=== PATIENT | male | born 1965 | race Caucasian/White ===

== ENCOUNTER 2017-01-07 04:12 | Emergency (ER) | payer OTHER ==
[~2017-01-07] VITALS: Ht 170.2 cm; Wt 72.6 kg
[2017-01-07 04:41] VITALS: BP 138/81
--- NOTE | 2017-01-07 04:41 | NUR ---
Patient ambulated to bed 04.
--- NOTE | 2017-01-07 04:47 | NUR ---
Dr. Ambrose evaluating patient at bedside.
[2017-01-07] MEDS ORDERED: IBUPROFEN 800 MG TAB PO ONE (04:50)
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
--- NOTE | 2017-01-07 05:59 | NUR ---
Patient back from XRAY via wheelchair per tech.
[2017-01-07 06:14] VITALS: BP 130/80
--- NOTE | 2017-01-07 06:14 | NUR ---
Patient discharged with v/s stable. Written and verbal after care instructions given and explained. Patient alert, oriented and verbalized understanding of instructions. Ambulatory with steady gait. All questions addressed prior to discharge. ID band removed. Patient advised to follow up with PMD. Rx of MOTRIN 800 MG, TYLENOL 500 MG given. Patient educated on indication of medication including possible reaction and side effects. Opportunity to ask questions provided and answered.
== END 2017-01-07 06:14 | disposition home or self-care (01) ==
LOC: MED 04:12
DX: S20.211A Contusion of right front wall of thorax, initial encounter (principal); E11.9 Type 2 diabetes mellitus without complications; I10 Essential (primary) hypertension; W17.89XA Other fall from one level to another, initial encounter; Y93.89 Activity, other specified; Y92.89 Other specified places as the place of occurrence of the external cause; Y99.8 Other external cause status
CPT/HCPCS: 71101; 99284

== ENCOUNTER 2019-07-17 22:25 | Emergency (ER) | payer SELFPAY ==
[~2019-07-17] VITALS: Ht 170.2 cm; Wt 74.8 kg
[2019-07-17 22:42] VITALS: BP 125/87
--- NOTE | 2019-07-17 23:28 | NUR ---
C/O RT LEG PAIN X 1 WEEK. RATES PAIN 8/10 AND DESCRIBES IT PRESSURE. RT LEG SHOWS SWELLING, REDNESS, TENDNERNESS TO TOUCH, NO DRIANAGE NOTED, SKIN WARM TO TOUCH. A & O X4. NKA. PMH: HTN, DM.
--- NOTE | 2019-07-17 23:36 | NUR ---
Dr. Patrick at bedside.
[2019-07-18] MEDS ORDERED: LIDOCAINE/EPI 1% 1:100000 20 ML VIAL INJ ONE (00:15)
[2019-07-18 01:05] VITALS: BP 136/79
--- NOTE | 2019-07-18 01:05 | NUR ---
Patient discharged with v/s stable. Instructed to return in 2 days for f/u wound treatment. States 0/10 pain at this time. Provided with additional guaze, tape, and medication discount card to fill rx Written and verbal after care instructions given and explained. Patient alert, oriented and verbalized understanding of instructions. Ambulatory with steady gait. All questions addressed prior to discharge. ID band removed. Patient advised to follow up with PMD and when to return to ER. Rx of Keflex, Naprosyn, and Bactrim given. Patient educated on indication of medication including possible reaction and side effects. Opportunity to ask questions provided and answered.
== END 2019-07-18 01:05 | disposition home or self-care (01) ==
LOC: MED 22:25
DX: L02.415 Cutaneous abscess of right lower limb (principal)
CPT/HCPCS: 10060; 90471; 90715; 99284; J2001; 10061

== ENCOUNTER 2019-07-19 22:48 | Emergency (ER) | payer SELFPAY ==
[~2019-07-19] VITALS: Ht 170.2 cm; Wt 74.8 kg
[2019-07-19 23:00] VITALS: BP 131/90
--- NOTE | 2019-07-19 23:00 | NUR ---
TO BED # 01 AMBULATORY
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
[2019-07-19 23:57] VITALS: BP 125/68
== END 2019-07-19 23:58 | disposition home or self-care (01) ==
LOC: MED 22:48
DX: L02.415 Cutaneous abscess of right lower limb (principal); E11.9 Type 2 diabetes mellitus without complications; I10 Essential (primary) hypertension
CPT/HCPCS: 99283

== ENCOUNTER 2020-06-06 23:00 | Inpatient (IN) | payer OTHER, SELFPAY ==
[~2020-06-06] VITALS: Ht 170.2 cm; Wt 78.5 kg
[~2020-06-06 23:00] MED LIST: APIX5TAB PO; BICT1TAB PO; CARV6.25 PO; CHOL100013 PO; EMPA10TA PO; FURO-570 PO; GLIP-176 PO; LISI10TA11 PO; ROSU5TAB PO
[2020-06-06 23:10] VITALS: BP 113/83
--- NOTE | 2020-06-06 23:10 | NUR ---
TO BED #11 VIA W/C
[2020-06-06] MEDS ORDERED: ONDANSETRON 4 MG/2 ML VIAL IVP ONE (23:20)
[2020-06-06] MEDS ORDERED: FUROSEMIDE 100 MG/10 ML VIAL IVP ONE (23:20)
[2020-06-06] MEDS ORDERED: MORPHINE SULFATE 2 MG/ML SYR IVP ONE (23:20)
--- NOTE | 2020-06-06 23:36 | NUR ---
LAB AT BEDSIDE.
--- NOTE | 2020-06-06 23:40 | NUR ---
54 Y/O MALE PRESENTED TO ED C/O BL LEG SWELLING , PT STATES IT HAS BEEN PROGRESSIVELY GETTING WORSE X 1 WEEK. PT DAUGHTER STATES HIS LEG HAS BEEN "LEAKING." PT WAS SEEN AT [facility] ER AND WAS D/C W/ WATER PILLS. THE WATER PILLS PROVIDED MINIMAL RELIEF. PT A/O X 4. RR EVEN AND UNLABORED. OBSERVED BL LOWER EXTREMITY SWELLING & REDNESS. + 4 BL PITTING EDEMA. + PEDAL PULSES. PT PLACED ON DESIGN ENGINEERING SPECIALIST, PULSE OX AND BP CUFF. VSS. NO ACUTE DISTRESS NOTED. PMH: CHF, DM, HTN, CVA X 2 YRS AGO BRENDA
[2020-06-06 23:47] LABS: EOSINOPHILS # (AUTO) 0.2 K/uL (0-0.4); EOSINOPHILS % (AUTO) 2.1 % (0.0-4.0); HEMOGLOBIN 12.9 g/dL (12.0-18.0); LYMPHOCYTES # (AUTO) 0.7 K/uL (2.0-11.5); MEAN CORPUSCULAR HEMOGLOBIN 26 pg (27-31); NEUTROPHILS # (AUTO) 6.3 K/uL (1.8-7.7); NEUTROPHILS % (AUTO) 82.8 % (42.2-75.2); WHITE BLOOD COUNT (AUTO) 7.6 K/uL (4.8-10.8)
[2020-06-06 23:51] LABS: BASOPHILS # (AUTO) 0.1 K/uL (0.00-0.22); BASOPHILS % (AUTO) 0.7 % (0.0-2.0); HEMATOCRIT 41.3 % (36-52); MEAN CORPUSCULAR HGB CONC 31 g/dL (33-37); MEAN CORPUSCULAR VOLUME 83.1 fL (80-94); MONOCYTES # (AUTO) 0.4 K/uL (0.8-1.0); MONOCYTES % (AUTO) 5.4 % (1.7-9.3); PLATELET COUNT (AUTO) 229 K/uL (140-450); RED BLOOD CELL COUNT(AUTO) 4.97 MIL/uL (4.20-6.10); RED CELL DISTRIBUTION WIDTH 22.1 % (11.6-13.7)
--- NOTE | 2020-06-07 00:04 | NUR ---
X-Ray at bedside.
[2020-06-07 00:14] LABS: ALBUMIN 2.3 g/dL (3.4-5.0); ANION GAP 12.2 (8-16); CARBON DIOXIDE 31.1 mmol/L (21-32); CREATININE 1.4 mg/dL (0.6-1.3); POTASSIUM 3.3 mmol/L (3.5-5.1); TOTAL BILIRUBIN 1.7 mg/dL (0.0-1.0)
--- NOTE | 2020-06-07 00:25 | NUR ---
PT PROVIDED URINAL.
--- NOTE | 2020-06-07 00:32 | NUR ---
US AT BEDSIDE.
--- NOTE | 2020-06-07 00:43 | NUR ---
BERONICA AUSTYN SWAB COLLECTED AND WALKED TO LAB.
[2020-06-07] MEDS ORDERED: METOCLOPRAMIDE 10 MG/2 ML INJ VIAL IVP PRN (00:50)
[2020-06-07] MEDS ORDERED: POTASSIUM CHLORIDE 10 MEQ TABER PO PRN (00:50)
[2020-06-07] MEDS ORDERED: MAGNESIUM OXIDE 400 MG TAB PO PRN (00:50)
[2020-06-07] MEDS ORDERED: ACETAMINOPHEN 325 MG TAB PO PRN (00:50)
[2020-06-07] MEDS ORDERED: DEXTROSE 50% 50 ML SYR IVP PRN (00:55)
[2020-06-07] MEDS ORDERED: ASPIRIN 325 MG TAB PO ONE (01:10)
[2020-06-07] MEDS ORDERED: AZITHROMYCIN 250 MG TAB PO ONE (01:20)
[2020-06-07] MEDS ORDERED: DEXAMETHASONE 4 MG/ML VIAL IVP ONE (01:20)
[2020-06-07] MEDS ORDERED: cefTRIAXone 1,000 MG VIAL ONE (01:54)
[2020-06-07 02:31] LABS: D-DIMER 3420 ng/ml (0-400)
[2020-06-07 02:36] LABS: FIBRINOGEN 294 mg/dL (200-400)
--- NOTE | 2020-06-07 02:40 | NUR ---
PT SLEEPING IN BED, LOCKED AND IN LOWEST POSITION ,HOB ELEVATED, SIDE RAIL X 2 FOR PT SAFETY. AROUSABLE TO VERBAL STIMULATION. VSS. NO ACUTE DISTRESS NOTED.
--- NOTE | 2020-06-07 04:51 | NUR ---
EMPTIED 800 CC YELLOW URINE FROM URINAL.
--- NOTE | 2020-06-07 04:53 | NUR ---
PT RESTING IN BED. NO ACUTE DISTRESS. VSS.
[2020-06-07] MEDS: BLOOD GLUCOSE MONITORING 1 DEV DEV FS SCH ×4 (07:09→21:17)
--- NOTE | 2020-06-07 07:25 | NUR ---
REPORT GIVEN TO KAYLEEN BOONE FOR TRANSFER OF CARE.
--- NOTE | 2020-06-07 07:26 | NUR ---
Report received from KAYLEEN Christina. Transfer of care at this time.
--- NOTE | 2020-06-07 07:47 | NUR ---
Pt sleeping, visible equal rise and fall of chest, VSS, will continue to monitor.
--- NOTE | 2020-06-07 08:15 | NUR ---
Pt provided with breakfast tray, HOB elevated.
[2020-06-07] MEDS ORDERED: FUROSEMIDE 40 MG/4 ML VIAL IVP SCH (09:00)
[2020-06-07] MEDS: APIXABAN 2.5 MG TAB PO SCH ×2 (09:01→21:19)
[2020-06-07] MEDS: lisinopriL 10 MG TAB PO SCH ×2 (09:01→21:20)
--- NOTE | 2020-06-07 09:04 | NUR ---
Gave report to KAYLEEN Collier for pending admission 108B.
--- NOTE | 2020-06-07 09:14 | NUR ---
PATIENT HAS BEEN SCREENED AND CATEGORIZED MODERATE NUTRITION RISK. PATIENT WILL BE SEEN WITHIN 3-5 DAYS OF ADMISSION. 06/09/20 06/11/[address]
--- NOTE | 2020-06-07 10:12 | NUR ---
Patient will be admitted to care of Jeane Keys. Admited to tele. Will go to room 108B. Belongings list completed. Report to KAYLEEN Collier.
--- NOTE | 2020-06-07 12:39 | NUR ---
SOCIAL WORK NOTE: Patient's Orientation Unable To Assess Information Provided By GILLIAN FORMAN - Comments SW WAS UNABLE TO MEET PATIENT AT BEDSIDE DUE TO MEDICAL CONDITION. SW COMPLETED ASSESSMENT WITH PATIENT'S SISTER. Career Manager, Realtionship and Phone Number GILLIAN HENAO [phone] [facility] Power of Philosophy Specialist No Does Patient Have a POLST No Identifying Problems No Social Work Triggers Is A Social Work Consult Needed No Mandate Report Filed No Explanation Of Identifying Problems PATIENT IS A 54-YEAR-OLD MALE ADMITTED FOR CHF. PATIENT HAS PMHX OF CHF AND DIABETES. SISTER REPORTED NO HISTORY OF SUBSTANCE ABUSE OR MENTAL HEALTH. Admitted From Home Pre-Admission Level Of Functioning Status Independent/Ambulatory Prior Resources/Services Used In Last 12 Months No Prior Resources Used Prior DME No Prior DME Used Living Situation Lives With Family House Patient Had Caregiver No Home Support No Caregiver Issues Financial Issues No Known Financial Issue Referral To The Financial Counselor Needed No Factors/Needs No D/C Needs Identified Pt/Rep Participated In Discharge Plan Yes Patient/Family Agress With Discharge Plan Yes Discharge Plan Comments TENTATIVE DISCHARGE PLAN IS FOR PATIENT TO RETURN HOME. DC Plan Status Initiated
[2020-06-07] MEDS: INSULIN LISPRO SLIDING SCALE 100 UNITS/ML VIAL SUBQ PRN ×2 (12:59→21:23)
[2020-06-07 20:00] VITALS: BP 112/59
--- NOTE | 2020-06-07 20:00 | NUR ---
RECEIVED PT IN STABLE CONDITION FROM AM NURSE. TELEMETRY PT. PT IS AWAKE , ALERT AND ORIENTED X4. AMBULATORY. ON TELE MONITOR. HL ON THE LT AC G#20. CLEAR AND PATENT. . BLE EDEMA 2 +. NO C/O ANY DISCOMFORT NOR PAIN NOTED. PLAN OF CARE DISCUSSED AND VERBALIZED UNDERSTANDING. FREQ ROUNDS NEEDED. BED ON LOW POSITION. SIDE RAILS UP X2. CALL LIGHT AND URINAL PLACED WITHIN REACH. WILL CONTINUE TO MONITOR.
[2020-06-07] MEDS ORDERED: ROSUVASTATIN CALCIUM 5 MG PO SCH (21:00)
[2020-06-07] MEDS ORDERED: SIMVASTATIN 20 MG TAB PO SCH (21:00)
[2020-06-07] MEDS: carvediloL 6.25 MG TAB PO SCH (21:20)
--- NOTE | 2020-06-07 21:23 | NUR ---
BLOOD SUGAR CHECKED RESULT 190. INSULIN COVERAGE GIVEN. HAD SOME CRACKERS NA MILK FOR SNACK.
[2020-06-08] VITALS: BP 128/74
--- NOTE | 2020-06-08 03:00 | NUR ---
MADE ROUNDS. PT IS ASLEEP. NO DISCOMFORT NOTED.
[2020-06-08 04:00] VITALS: BP 107/75
[2020-06-08] MEDS: BLOOD GLUCOSE MONITORING 1 DEV DEV FS SCH ×3 (06:01→18:15)
[2020-06-08] MEDS: INSULIN LISPRO SLIDING SCALE 100 UNITS/ML VIAL SUBQ PRN ×2 (06:02→12:44)
--- NOTE | 2020-06-08 06:02 | NUR ---
BLOOD SUGAR WAS CHECKED RESULT 185. INSULIN COVERAGE HUMALOG 2 UNITS GIVEN SUBQ.
[2020-06-08 06:56] LABS: ANION GAP 9.3 (8-16); CARBON DIOXIDE 33.8 mmol/L (21-32); CREATININE 1.3 mg/dL (0.6-1.3); POTASSIUM 4.1 mmol/L (3.5-5.1)
--- NOTE | 2020-06-08 07:30 | NUR ---
ENDORSED PT IN STABLE CONDITION TO AM NURSE.
--- NOTE | 2020-06-08 07:30 | NUR ---
RECEIVED PT A/O X3. DENIES PAIN. NO S/S OF NAUSEA OR VOMITING. NO SOB. PALPABLE PULSES TO DISTAL EXTREMITIES. NO CYANOSIS NOTED. DENIES CHEST PAIN. PLACED PT TO 2L O2 VIA N /C. PROVIDED REGULAR MASK FOR PREVENTION. NO ISOLATION. WILL CONTINUE TO MONITOR.
[2020-06-08] MEDS ORDERED: CHOLECALCIFEROL 1,000 IU TAB PO SCH (09:00)
[2020-06-08] MEDS ORDERED: NON-FORMULARY ITEM (Bictegrav/Emtricit/Tenofov Ala (Biktarvy 50-200-25 mg Tablet) 1 EACH) PO SCH (09:00)
[2020-06-08] MEDS ORDERED: SPIRONOLACTONE 25 MG TAB PO SCH (09:00)
[2020-06-08] MEDS ORDERED: CHOLECALCIFEROL 125 MCG PO SCH (09:00)
[2020-06-08] MEDS: lisinopriL 10 MG TAB PO SCH (09:04)
[2020-06-08] MEDS: carvediloL 6.25 MG TAB PO SCH (09:05)
[2020-06-08] MEDS: APIXABAN 2.5 MG TAB PO SCH (09:06)
[2020-06-08 09:08] LABS: FERRITIN 116 ng/mL (30-400); LACTATE DEHYDROGENASE 218 IU/L (121-224)
[2020-06-08] MEDS ORDERED: SPIR50TA PO (16:59)
[2020-06-08 17:46] VITALS: BP 100/68
[2020-06-10 07:07] LABS: LD1 FRACTION 29 % (17-32); LD2 FRACTION 35 % (25-40); LD3 FRACTION 19 % (17-27); LD4 FRACTION 9 % (5-13); LD5 FRACTION 8 % (4-20)
== END 2020-06-08 19:05 | disposition home or self-care (01) | DRG 194 ==
LOC: MED 23:00 → MTU 06-07 00:51
PROVIDERS: ADMIT Hospitalist; ATTEND Hospitalist
DX: I11.0 Hypertensive heart disease with heart failure (principal); I25.2 Old myocardial infarction; E78.5 Hyperlipidemia, unspecified; I21.A1 Myocardial infarction type 2; E11.9 Type 2 diabetes mellitus without complications; I27.21 Secondary pulmonary arterial hypertension; I50.23 Acute on chronic systolic (congestive) heart failure; E87.6 Hypokalemia; I07.1 Rheumatic tricuspid insufficiency; I42.0 Dilated cardiomyopathy; E11.21 Type 2 diabetes mellitus with diabetic nephropathy; M71.22 Synovial cyst of popliteal space [Baker], left knee; Z20.828 Contact with and (suspected) exposure to other viral communicable diseases; Z86.73 Personal history of transient ischemic attack (TIA), and cerebral infarction without residual deficits; Z87.891 Personal history of nicotine dependence; Z83.3 Family history of diabetes mellitus; Z82.49 Family history of ischemic heart disease and other diseases of the circulatory system; Z59.0 Homelessness; E44.0 Moderate protein-calorie malnutrition
CPT/HCPCS: 36415; 71045; 80048; 80053; 82728; 82948; 83625; 83735; 83880; 84484; 85025; 85379; 85384; 86140; 93970; 96365; 96375; 99285; J0696; J1100; J1815; J1940; J2270; J2405; J7060

== ENCOUNTER 2023-09-14 13:35 | Emergency (ER) | payer OTHER ==
[~2023-09-14] VITALS: Ht 170.2 cm; Wt 69.4 kg
[2023-09-14 13:35] VITALS: BP 109/67; PULSE 60; RESP 17; TEMP 97.5; O2SAT 94
[~2023-09-14 13:35] MED LIST changes: +DOXY-690 PO; -EMPA10TA PO; -GLIP-176 PO; +GLIP5TAB24 PO; -LISI10TA11 PO; +LOTC TP; +ROC1PM IV; -ROSU5TAB PO; +SPIR50TA PO
[2023-09-14] MEDS ORDERED: BACTO TP (14:57)
[2023-09-14] MEDS ORDERED: ACET-10509 PO (14:57)
[2023-09-14] MEDS ORDERED: SACU1TAB PO (15:10)
[2023-09-14] MEDS ORDERED: SPIR50TA PO (15:10)
[2023-09-14] MEDS ORDERED: CANA100T PO (15:10)
[2023-09-14] MEDS ORDERED: ROSU5TAB PO (15:10)
[2023-09-14] MEDS ORDERED: FURO-570 PO (15:10)
[2023-09-14] MEDS ORDERED: APIX5TAB PO (15:10)
[2023-09-14] MEDS ORDERED: ASPI-1749 PO (15:10)
[2023-09-14] MEDS ORDERED: AMIO100T3 PO (15:10)
[2023-09-14 16:30] VITALS: BP 109/67; PULSE 60; RESP 17; TEMP 97.5; O2SAT 94
== END 2023-09-14 16:30 | disposition home or self-care (01) ==
LOC: MED 13:35
DX: S00.03XA Contusion of scalp, initial encounter (principal); I10 Essential (primary) hypertension; E11.9 Type 2 diabetes mellitus without complications; Z86.73 Personal history of transient ischemic attack (TIA), and cerebral infarction without residual deficits; Z79.4 Long term (current) use of insulin; Z79.899 Other long term (current) drug therapy; W18.30XA Fall on same level, unspecified, initial encounter; Y93.89 Activity, other specified; Y92.89 Other specified places as the place of occurrence of the external cause; Y99.8 Other external cause status
CPT/HCPCS: 70450; 72125; 90471; 90715; 99285